=== PATIENT | female | born 1930 | race Caucasian/White ===

== ENCOUNTER 2018-07-24 13:58 | Emergency (ER) | payer OTHER, BC ==
--- NOTE | 2018-07-24 14:27 | PDOC ---
Attending Attestation - Resident Resident Name: Eh Lopez - ED Attending Attestation I have performed the following: I have examined & evaluated the patient, The case was reviewed & discussed with the resident, I agree w/resident's findings & plan, Exceptions are as noted - HPI HPI: 07/24/18 14:26 The patient is a 88 year old female with a significant past medical history of pneumonia s/p outpatient managment who presents to the ER s/p fall earlier today. Patient states she tripped over a rug at home and sustained the fall on her left shoulder. Patient is now complaining of left shoulder soreness and pain. Patient denies any head trauma or loss of consciousness. Patient is not currently following up with ortho. No associated numbness/tingling/weakness, neck pain, back pain. The patient denies chest pain, shortness of breath, dizziness, head trauma, nausea, vision changes, or headache. Allergies: Penicillins Past surgical history: None reported. Social history: No reported alcohol, drug, or cigarette use. PCP: Dr. Mejias at [place] - Physicial Exam PE: 07/24/18 16:12 GENERAL: The patient is awake, alert, and fully oriented, Nontoxic - in no acute distress. HEAD: Normocephalic, atraumatic scalp EYES: extraocular movements intact, sclera anicteric, conjunctiva clear. ENT: Normal voice, Moist mucous membranes. NECK: Normal range of motion, supple LUNGS: Breath sounds equal, clear to auscultation bilaterally. No wheezes, no rhonchi, no rales. HEART: Regular rate and rhythm, normal S1 and S2 without murmur, rub or gallop. ABDOMEN: Soft, nontender, normoactive bowel sounds. No guarding, no rebound. . No CVA tenderness EXTREMITIES: mild ttp to L posterior shoulder, ROM limited by pain. BACK: No focal tenderness in the cervical, throacic, lumbar tenderness. NEUROLOGICAL: No facial assymetry, Normal speech, moving all 4 extremities spontaneously and symmetrically PSYCH: Normal mood, normal affect. SKIN: Warm, Dry, normal turgor, - Medical Decision Making 07/24/18 16:17 ddx: shoulder fx vs dislocation 07/24/18 16:25 xray neg for fx, but pt tstill has alot of pain will obtain a CT of shoulder to r/o fx pt declines any pain medications 07/24/18 18:53 CT noted for avuolsion fx of the glenoid placed in a sling will dc with pmd and ortho fu
--- NOTE | 2018-07-24 14:52 | PDOC ---
History of Present Illness - General Chief Complaint: Pain, Acute Stated Complaint: FALL Time Seen by Provider: 07/24/18 14:00 - History of Present Illness Initial Comments: 07/24/18 14:48 88F with no pmh presents to the ED after mechanical fall tripping on carpet and falling on left shoulder. She denies LOC or hitting her head. She endorses pain in the left shoulder, difficulty raising her arm due to the pain. but able to move her hand. No loss of sensation. 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) - Suicide/Smoking/Psychosocial Hx Smoking History: Never smoked Have you smoked in the past 12 months: No Hx Alcohol Use: No Drug/Substance Use Hx: No Substance Use Type: None Review of Systems - Review of Systems Able to Perform ROS?: Yes Constitutional: No: Symptoms Reported HEENTM: No: Symptoms Reported Respiratory: No: Symptoms reported Cardiac (ROS): No: Symptoms Reported ABD/GI: No: Symptoms Reported : No: Symptoms Reported Musculoskeletal: Yes: See HPI Integumentary: No: Symptoms Reported Neurological: No: Symptoms reported All Other Systems: Reviewed and Negative *Physical Exam - Physical Exam General Appearance: Yes: Nourished, Appropriately Dressed. No: Apparent Distress HEENT: positive: EOMI, LUIS ENRIQUE, Normal ENT Inspection Neck: positive: Trachea midline, Normal Thyroid, Supple. negative: Tender, Rigid Respiratory/Chest: positive: Lungs Clear, Normal Breath Sounds. negative: Chest Tender, Respiratory Distress Cardiovascular: positive: Regular Rhythm, Regular Rate, S1, S2 Gastrointestinal/Abdominal: positive: Normal Bowel Sounds, Flat, Soft. negative : Tender Musculoskeletal: positive: Decreased Range of Motion (of the left arm. Difficulty abducting left arm but refered shoulder pain when sqeezing left hand. ). negative: CVA Tenderness Extremity: positive: Normal Capillary Refill. negative: Normal Inspection, Normal Range of Motion (Loss of shoulder fullness. ) Neurologic: positive: Fully Oriented, Alert, Normal Mood/Affect, Normal Response ED Treatment Course - RADIOLOGY Radiology Studies Ordered: Category Date Time Status SHOULDER-LEFT [RAD] Stat Radiology 07/24/18 14:15 Ordered Medical Decision Making - Medical Decision Making 07/24/18 14:52 Shoulder dislocation vs fracture vs muscle spasm - shoulder xray pending 07/24/18 16:24 Xray negative. - Will check with shoulder CT and UA *DC/Admit/Observation/Transfer Diagnosis at time of Disposition: Shoulder fracture, left - Discharge Dispostion Disposition: HOME Condition at time of disposition: Improved Decision to Admit order: No - Referrals Referrals: Rk Reich MD [Primary Care Provider] - Mikhail Sanabria MD [Staff Physician] - - Patient Instructions Printed Discharge Instructions: How to Use a Sling Additional Instructions: Come back to the ER for any new, worsening or concerning symptom. Make an appointment with Dr. Sanabria as soon as you can. - Post Discharge Activity
[2018-07-24 15:57] VITALS: BP 117/92; PULSE 87; TEMP 98.2; BMI 32.9
[2018-07-24] MEDS ORDERED: ACETAMINOPHEN 325 MG TABLET (FP) PO ONE (18:48)
[2018-07-24] MEDS ORDERED: traMADol HCL 50 MG TABLET PO ONE (18:48)
[2018-07-24] MEDS ORDERED: ACETAMINOPHEN 325 MG TABLET (FP) ONE (19:33)
[2018-07-24] MEDS ORDERED: traMADol HCL 50 MG TABLET ONE (19:34)
== END 2018-07-24 19:40 | disposition home or self-care (01) ==
LOC: JER 13:58
DX: S42.145A Nondisplaced fracture of glenoid cavity of scapula, left shoulder, initial encounter for closed fracture (principal); W18.09XA Striking against other object with subsequent fall, initial encounter; Y93.89 Activity, other specified; Y92.018 Other place in single-family (private) house as the place of occurrence of the external cause; Y99.8 Other external cause status
CPT/HCPCS: 73030-TC-LT-FY; 73200-TC-RT; 99283-25